=== PATIENT | female | born 1940 | race Caucasian/White ===

== ENCOUNTER 2022-10-18 00:43 | Inpatient (IN) | payer MEDICARE, OTHER ==
[~2022-10-18] VITALS: Ht 172.7 cm; Wt 64.0 kg
[2022-10-18 01:18] LABS: ADD URINE CULTURE YES; APPEARANCE,URINE SLIGHTLY CLOUDY (CLEAR); BACTERIA,URINE Rare /HPF (None Seen); BILIRUBIN,URINE NEGATIVE (NEGATIVE); BLOOD, URINE 3+ Ery/uL (NEGATIVE); COLOR,URINE DARK YELLOW (YELLOW); KETONES,URINE TRACE mg/dL (NEGATIVE); LEUKOCYTE ESTERASE ,URINE 2+ (NEGATIVE); NITRITE, URINE NEGATIVE (NEGATIVE); PH,URINE 5.5 (5.0-8.0); PROTEIN,URINE 2+ mg/dl (NEGATIVE); SQUAMOUS EPITHELIAL CELL,UR Few /HPF (None Seen); UGLUCOSE NEGATIVE (NEGATIVE)
[2022-10-18] MEDS ORDERED: AZITHROMYCIN 500 MG VIAL ONE (03:45)
[2022-10-18] MEDS ORDERED: CEFTRIAXONE 1GM BAG (ER ONLY) 50 ML IV ONE (03:45)
[2022-10-18 04:09] LABS: BASOPHILS # (AUTO) 0.1 K/uL (0.0-0.2); BASOPHILS % (AUTO) 0.6 % (0.0-2.0); EOSINOPHILS # (AUTO) 0.6 K/uL (0.0-0.7); EOSINOPHILS % (AUTO) 4.8 % (0.0-6.0); HEMATOCRIT 35 % (33-45); HEMOGLOBIN 11.1 g/dL (11.5-14.8); LYMPHOCYTES # (AUTO) 3.9 K/uL (0.8-4.8); MEAN CORPUSCULAR HEMOGLOBIN 27 PG (26.0-33.0); MEAN CORPUSCULAR HGB CONC 31 g/dl (31.0-36.0); MEAN CORPUSCULAR VOLUME 88 fL (82-100); NEUTROPHILS # (AUTO) 6.9 K/uL (1.8-8.9); NEUTROPHILS % (AUTO) 55.6 % (43.0-81.0); PLATELET COUNT (AUTO) 263 K/uL (150-450); RED BLOOD CELL COUNT(AUTO) 4.05 MIL/uL (4.0-5.2); RED CELL DISTRIBUTION WIDTH 19.6 % (11.5-15.0); WHITE BLOOD COUNT (AUTO) 12.5 K/uL (4.3-11.0)
[2022-10-18 04:10] LABS: ALANINE AMINOTRANSFERASE 59 U/L (12-78); ALBUMIN 2.1 g/dL (3.4-5.0); ALKALINE PHOSPHATASE 112 U/L (46-116); ASPARTATE AMINOTRANSFERASE 63 U/L (15-37); BILIRUBIN,DIRECT 0.1 mg/dL (0.0-0.2); BILIRUBIN,TOTAL 0.5 mg/dL (0.2-1.0); CALCIUM, SERUM 9.3 mg/dL (8.5-10.1); CARBON DIOXIDE 26 mmol/L (21-32); CHLORIDE 109 mmol/L (98-107); CREATININE 0.6 mg/dL (0.6-1.3); GLUCOSE 92 mg/dL (74-106); NT-PRO BNP 7640 pg/mL (0-125); POTASSIUM 3.6 mmol/L (3.5-5.1); SODIUM SERUM 145 mmol/L (136-145); TOTAL PROTEIN, SERUM 7.2 g/dL (6.4-8.2); UREA NITROGEN, BLOOD 29 mg/dL (7-18)
[2022-10-18 04:50] LABS: LACTIC ACID 1.6 mmol/L (0.4-2.0)
[2022-10-18 04:51] LABS: INR 1.11 (0.91-1.10); PARTIAL THROMBOPLASTIN TIME 29.9 SEC (24.3-34.3); PROTHROMBIN TIME 11.6 SECS (9.2-11.1)
[2022-10-18] MEDS ORDERED: CEFTRIAXONE 1GM BAG (ER ONLY) 1 GM/50 ML PIGGYBACK IV ONE (05:00)
[2022-10-18] MEDS ORDERED: AZITHROMYCIN 500 MG in IV D5W 250 ML IV ONE (05:00)
[2022-10-18] MEDS ORDERED: IV NS 0.9% 1,000 ML IV ONE (05:00)
[2022-10-18] MEDS ORDERED: MAG HYDROX/AL HYDROX/SIMETH 30 ML UDC PO PRN (05:30)
[2022-10-18] MEDS ORDERED: Z GUARD REMEDY 4 OZ OINT TP PRN (05:30)
[2022-10-18] MEDS ORDERED: ZOLPIDEM TARTRATE 5 MG TABLET PO PRN (05:30)
[2022-10-18] MEDS ORDERED: ENOXAPARIN SODIUM 40 MG/0.4 ML DISP.SYRIN SQ SCH (05:30)
[2022-10-18] MEDS ORDERED: ONDANSETRON HCL/PF 4 MG/2 ML VIAL IVP PRN (05:30)
[2022-10-18] MEDS ORDERED: ACETAMINOPHEN 325 MG TABLET PO PRN (05:30)
[2022-10-18] MEDS ORDERED: MAGNESIUM HYDROXIDE 30 ML UDC PO PRN (05:30)
[2022-10-18] MEDS ORDERED: PANTOPRAZOLE 40 MG TABLET.DR PO SCH (07:30)
[2022-10-18 08:05] VITALS: BP 110/64; TEMP 98.1; O2SAT 96
[2022-10-18] MEDS: IV NS 0.9% 1,000 ML IV PRN (08:33)
[2022-10-18] MEDS ORDERED: MAGN400T26 GT (09:23)
[2022-10-18] MEDS ORDERED: MULT9LIQ6 GT (09:23)
[2022-10-18] MEDS ORDERED: DAPT500V2 IV (09:23)
[2022-10-18] MEDS ORDERED: ASCO-352 GT (09:23)
[2022-10-18] MEDS ORDERED: OMEP20CA15 GT (09:23)
[2022-10-18] MEDS ORDERED: SODI473S8 TOP (09:23)
[2022-10-18] MEDS ORDERED: MERO1VIA23 IV (09:23)
[2022-10-18] MEDS ORDERED: GABA-532 GT (09:23)
[2022-10-18] MEDS ORDERED: FURO20TA4 GT (09:23)
[2022-10-18] MEDS ORDERED: SCOP1PAT11 TD (09:23)
[2022-10-18] MEDS ORDERED: SENN-261 GT (09:23)
[2022-10-18] MEDS ORDERED: LACT100027 GT (09:23)
[2022-10-18] MEDS ORDERED: AMIN30LI2 GT (09:23)
[2022-10-18] MEDS ORDERED: METO25TA20 GT (09:23)
[2022-10-18] MEDS ORDERED: BISA10SU11 RC (09:23)
[2022-10-18] MEDS ORDERED: OXCA300T15 GT (09:23)
[2022-10-18] MEDS ORDERED: ATOR40TA GT (09:23)
[2022-10-18] MEDS ORDERED: CALCIUM ALGINATE TD (09:23)
[2022-10-18] MEDS ORDERED: ARGI1POW13 GT (09:23)
[2022-10-18] MEDS ORDERED: QUET25TA GT (09:23)
[2022-10-18] MEDS ORDERED: MENT71OI2 TP (09:23)
[2022-10-18] MEDS ORDERED: THIA100T74 GT (09:23)
[2022-10-18] MEDS ORDERED: MELA5TAB GT (09:23)
[2022-10-18] MEDS ORDERED: POLY17PO4 GT (09:23)
[2022-10-18] MEDS ORDERED: DILT30TA14 GT (09:23)
[2022-10-18] MEDS ORDERED: FOLI0.4T6 GT (09:23)
[2022-10-18] MEDS ORDERED: APIX2.5T GT (09:23)
[2022-10-18] MEDS: ENOXAPARIN SODIUM 40 MG/0.4 ML DISP.SYRIN SQ SCH (09:40)
[2022-10-18] MEDS ORDERED: AMIODARONE 450 MG in IV D5W 241 ML IV PRN (11:00)
[2022-10-18] MEDS ORDERED: AMIODARONE 150 MG in IV D5W 100 ML IV ONE (11:00)
[2022-10-18] MEDS ORDERED: ZOLPIDEM TARTRATE 5 MG TABLET GT PRN (11:17)
[2022-10-18] MEDS ORDERED: MAG HYDROX/AL HYDROX/SIMETH 30 ML UDC GT PRN (11:17)
[2022-10-18] MEDS ORDERED: MAGNESIUM HYDROXIDE 30 ML UDC GT PRN (11:17)
[2022-10-18] MEDS ORDERED: ACETAMINOPHEN 650 MG/20.3 ML UDC GT PRN (11:30)
[2022-10-18 12:00] VITALS: BP 134/93; TEMP 98.2; O2SAT 97
[2022-10-18] MEDS: JEVITY 1.2 CAL 1,000 ML BOTTLE GT PRN (12:18)
[2022-10-18] MEDS ORDERED: GUAIFENESIN/D-METHORPHAN HB 5 ML UDC PO PRN (14:30)
[2022-10-18] MEDS ORDERED: [UNRECOGNIZED DRUG - OTHER] GT (15:30)
[2022-10-18] MEDS ORDERED: [UNRECOGNIZED DRUG - OTHER] GT (15:30)
[2022-10-18] MEDS ORDERED: COLLAGEN GT (15:30)
[2022-10-18] MEDS ORDERED: [UNRECOGNIZED DRUG - OTHER] GT (15:30)
[2022-10-18 16:00] VITALS: BP 132/89; TEMP 98.2; O2SAT 95
[2022-10-18] MEDS ORDERED: DILTIAZEM HCL IV 125 MG in IV NS 0.9% 100 ML IV PRN ×4 (19:30)
[2022-10-18 20:00] VITALS: BP 118/67; TEMP 97.9; O2SAT 97
[2022-10-18] MEDS: DILTIAZEM HCL IV 125 MG in IV NS 0.9% 100 ML IV PRN (20:10)
[2022-10-19] VITALS: BP 113/71; TEMP 98.2; O2SAT 99
[2022-10-19] MEDS: QUETIAPINE FUMARATE 25 MG TABLET GT SCH ×2 (00:36→21:58)
[2022-10-19] MEDS: IV NS 0.9% 1,000 ML IV PRN ×2 (00:40→14:42)
[2022-10-19 04:00] VITALS: BP 108/72; TEMP 97.7; O2SAT 99
[2022-10-19] MEDS: CEFTRIAXONE 1 G in IV D5W 50 ML IV SCH (04:35)
[2022-10-19] MEDS: AZITHROMYCIN 500 MG in IV D5W 250 ML IV SCH (05:32)
[2022-10-19 07:37] LABS: BASOPHILS % (AUTO) 0.3 % (0.0-2.0); EOSINOPHILS # (AUTO) 0.5 K/uL (0.0-0.7); HEMATOCRIT 34 % (33-45); HEMOGLOBIN 10.9 g/dL (11.5-14.8); LYMPHOCYTES # (AUTO) 1.9 K/uL (0.8-4.8); LYMPHOCYTES % (AUTO) 21.8 % (20.0-44.0); MEAN CORPUSCULAR HEMOGLOBIN 28 PG (26.0-33.0); MEAN CORPUSCULAR HGB CONC 32 g/dl (31.0-36.0); MEAN CORPUSCULAR VOLUME 88 fL (82-100); MONOCYTES # (AUTO) 0.6 K/uL (0.1-1.30); NEUTROPHILS # (AUTO) 5.8 K/uL (1.8-8.9); NEUTROPHILS % (AUTO) 64.9 % (43.0-81.0); PLATELET COUNT (AUTO) 252 K/uL (150-450); RED BLOOD CELL COUNT(AUTO) 3.89 MIL/uL (4.0-5.2); RED CELL DISTRIBUTION WIDTH 19.6 % (11.5-15.0); WHITE BLOOD COUNT (AUTO) 8.9 K/uL (4.3-11.0)
[2022-10-19 08:00] VITALS: BP 128/68; TEMP 97.6; O2SAT 99
[2022-10-19 08:05] LABS: CALCIUM, SERUM 8.6 mg/dL (8.5-10.1); CARBON DIOXIDE 24 mmol/L (21-32); CHLORIDE 112 mmol/L (98-107); CREATININE 0.5 mg/dL (0.6-1.3); GLUCOSE 150 mg/dL (74-106); MAGNESIUM 2.1 mg/dL (1.8-2.4); PHOSPHORUS 2.6 mg/dL (2.5-4.9); POTASSIUM 3.2 mmol/L (3.5-5.1); SODIUM SERUM 145 mmol/L (136-145); UREA NITROGEN, BLOOD 21 mg/dL (7-18)
[2022-10-19 08:19] LABS: THYROID STIMULATING HORMONE 3.498 uIU/mL (0.358-3.74)
[2022-10-19] MEDS: PANTOPRAZOLE 40 MG/PACK PACK GT SCH (09:24)
[2022-10-19] MEDS: CLOTRIMAZOLE 1% 15 GM TUBE TP SCH ×2 (09:25→17:21)
[2022-10-19] MEDS: ENOXAPARIN SODIUM 40 MG/0.4 ML DISP.SYRIN SQ SCH (09:25)
[2022-10-19] MEDS: PROSOURCE / PROSTAT (PYXIS) 30 ML UDC GT SCH (09:26)
[2022-10-19] MEDS: DAKINS QUARTER STRENGTH (0.125%) 480 ML BOTTLE TOP SCH ×2 (09:26→15:21)
[2022-10-19] MEDS: POTASSIUM CHLORIDE 20 MEQ POWDER PACKET NG SCH ×2 (09:47→11:53)
[2022-10-19 12:00] VITALS: BP 134/79; TEMP 98; O2SAT 99
[2022-10-19] MEDS: THERAHONEY GEL 1.5 OZ TUBE TP SCH (15:22)
[2022-10-19 16:00] VITALS: BP 141/84; TEMP 98.1; O2SAT 99
[2022-10-19] MEDS: DILTIAZEM HCL IV 125 MG in IV NS 0.9% 100 ML IV PRN (17:44)
[2022-10-19] MEDS ORDERED: DILTIAZEM HCL 30 MG TABLET GT SCH (18:30)
[2022-10-19] MEDS: APIXABAN 2.5 MG TABLET GT SCH (18:50)
[2022-10-19] MEDS: OXCARBAZEPINE 150 MG TABLET PO SCH (19:09)
[2022-10-19 20:00] VITALS: BP 120/95; TEMP 98.1; O2SAT 98
[2022-10-19] MEDS: DILTIAZEM HCL 30 MG TABLET GT SCH (21:57)
[2022-10-19] MEDS: SCOPOLAMINE PATCH 1 MG/72HR TD SCH (21:57)
[2022-10-19] MEDS: ATORVASTATIN 40 MG TABLET GT SCH (21:57)
[2022-10-19] MEDS ORDERED: QUETIAPINE FUMARATE 25 MG TABLET GT SCH (22:00)
[2022-10-20] VITALS: BP 103/59; TEMP 98.7; O2SAT 97
[2022-10-20 04:00] VITALS: BP 100/70; TEMP 97.8; O2SAT 96
[2022-10-20] MEDS: CEFTRIAXONE 1 G in IV D5W 50 ML IV SCH (04:56)
[2022-10-20] MEDS: AZITHROMYCIN 500 MG in IV D5W 250 ML IV SCH (04:57)
[2022-10-20 05:56] LABS: BASOPHILS % (AUTO) 0.6 % (0.0-2.0); EOSINOPHILS # (AUTO) 0.5 K/uL (0.0-0.7); EOSINOPHILS % (AUTO) 6.8 % (0.0-6.0); HEMATOCRIT 35 % (33-45); HEMOGLOBIN 10.8 g/dL (11.5-14.8); LYMPHOCYTES % (AUTO) 25.5 % (20.0-44.0); MEAN CORPUSCULAR HEMOGLOBIN 28 PG (26.0-33.0); MEAN CORPUSCULAR HGB CONC 31 g/dl (31.0-36.0); MEAN CORPUSCULAR VOLUME 89 fL (82-100); MONOCYTES # (AUTO) 0.6 K/uL (0.1-1.30); MONOCYTES % (AUTO) 7.2 % (2.0-12.0); NEUTROPHILS # (AUTO) 4.6 K/uL (1.8-8.9); NEUTROPHILS % (AUTO) 59.9 % (43.0-81.0); PLATELET COUNT (AUTO) 233 K/uL (150-450); RED CELL DISTRIBUTION WIDTH 19.5 % (11.5-15.0); WHITE BLOOD COUNT (AUTO) 7.7 K/uL (4.3-11.0)
[2022-10-20] MEDS: IV NS 0.9% 1,000 ML IV PRN (06:01)
[2022-10-20] MEDS: JEVITY 1.2 CAL 1,000 ML BOTTLE GT PRN (06:09)
[2022-10-20 06:16] LABS: ALANINE AMINOTRANSFERASE 58 U/L (12-78); ALBUMIN 1.8 g/dL (3.4-5.0); ALKALINE PHOSPHATASE 123 U/L (46-116); ASPARTATE AMINOTRANSFERASE 53 U/L (15-37); BILIRUBIN,TOTAL 0.2 mg/dL (0.2-1.0); CALCIUM, SERUM 8.7 mg/dL (8.5-10.1); CARBON DIOXIDE 23 mmol/L (21-32); CHLORIDE 113 mmol/L (98-107); CREATININE 0.5 mg/dL (0.6-1.3); GLUCOSE 114 mg/dL (74-106); PHOSPHORUS 2.9 mg/dL (2.5-4.9); POTASSIUM 3.7 mmol/L (3.5-5.1); SODIUM SERUM 145 mmol/L (136-145); TOTAL PROTEIN, SERUM 6.4 g/dL (6.4-8.2); UREA NITROGEN, BLOOD 13 mg/dL (7-18)
[2022-10-20 08:00] VITALS: BP 113/66; TEMP 98.6; O2SAT 97
[2022-10-20] MEDS: OXCARBAZEPINE 150 MG TABLET PO SCH ×3 (08:58→16:21)
[2022-10-20] MEDS: THIAMINE HCL 100 MG TABLET GT SCH (08:58)
[2022-10-20] MEDS: DILTIAZEM HCL 30 MG TABLET GT SCH ×4 (08:58→21:31)
[2022-10-20] MEDS: METOPROLOL TARTRATE 25 MG TABLET GT SCH ×2 (08:59→16:21)
[2022-10-20] MEDS: GABAPENTIN 100 MG CAPSULE GT SCH ×3 (09:00→16:22)
[2022-10-20] MEDS ORDERED: FUROSEMIDE 20 MG TABLET GT SCH (09:00)
[2022-10-20] MEDS ORDERED: FUROSEMIDE 20 MG/2 ML VIAL IV SCH (09:00)
[2022-10-20] MEDS ORDERED: METOPROLOL TARTRATE 25 MG TABLET GT SCH (09:00)
[2022-10-20] MEDS: APIXABAN 2.5 MG TABLET GT SCH ×2 (09:02→16:22)
[2022-10-20] MEDS: PROSOURCE / PROSTAT (PYXIS) 30 ML UDC GT SCH (09:02)
[2022-10-20] MEDS: PANTOPRAZOLE 40 MG/PACK PACK GT SCH (09:07)
[2022-10-20] MEDS: POLYETHYLENE GLYCOL 3350 17 GM POWD.PACK GT SCH (09:08)
[2022-10-20] MEDS: SENNOSIDES 8.6 MG TABLET GT SCH ×2 (09:08→16:21)
[2022-10-20] MEDS: DAKINS QUARTER STRENGTH (0.125%) 480 ML BOTTLE TOP SCH ×3 (09:09→09:11)
[2022-10-20] MEDS: CLOTRIMAZOLE 1% 15 GM TUBE TP SCH ×2 (09:12→16:23)
[2022-10-20] MEDS: THERAHONEY GEL 1.5 OZ TUBE TP SCH (09:12)
[2022-10-20 12:00] VITALS: BP 120/68; TEMP 98.6; O2SAT 97
[2022-10-20 16:00] VITALS: BP 133/80; TEMP 98.1; O2SAT 97
[2022-10-20] MEDS ORDERED: Sodium Phosphate 30 MMOL in IV NS 0.9% 250 ML IV SCH (16:30)
[2022-10-20] MEDS: IV NS 0.9% 250 ML IV PRN (16:39)
[2022-10-20] MEDS: [UNRECOGNIZED DRUG - OTHER] GT SCH (17:50)
[2022-10-20 20:00] VITALS: BP 115/63; TEMP 97.7; O2SAT 98
[2022-10-20] MEDS: QUETIAPINE FUMARATE 25 MG TABLET GT SCH (21:31)
[2022-10-20] MEDS: ATORVASTATIN 40 MG TABLET GT SCH (21:31)
[2022-10-21] VITALS: BP 91/50; TEMP 97.9; O2SAT 95
[2022-10-21] MEDS: JEVITY 1.2 CAL 1,000 ML BOTTLE GT PRN ×2 (00:55→15:32)
[2022-10-21 04:00] VITALS: BP 111/59; TEMP 98; O2SAT 98
[2022-10-21] MEDS: CEFTRIAXONE 1 G in IV D5W 50 ML IV SCH (04:56)
[2022-10-21] MEDS: AZITHROMYCIN 500 MG in IV D5W 250 ML IV SCH (05:52)
[2022-10-21 08:00] VITALS: BP 97/60; TEMP 98.7; O2SAT 100
[2022-10-21 08:01] LABS: ALANINE AMINOTRANSFERASE 47 U/L (12-78); ALBUMIN 1.7 g/dL (3.4-5.0); ALKALINE PHOSPHATASE 115 U/L (46-116); ASPARTATE AMINOTRANSFERASE 39 U/L (15-37); BILIRUBIN,TOTAL 0.2 mg/dL (0.2-1.0); CALCIUM, SERUM 8.6 mg/dL (8.5-10.1); CARBON DIOXIDE 28 mmol/L (21-32); CHLORIDE 110 mmol/L (98-107); CREATININE 0.5 mg/dL (0.6-1.3); GLUCOSE 136 mg/dL (74-106); MAGNESIUM 1.7 mg/dL (1.8-2.4); PHOSPHORUS 3.1 mg/dL (2.5-4.9); POTASSIUM 3.5 mmol/L (3.5-5.1); SODIUM SERUM 144 mmol/L (136-145); TOTAL PROTEIN, SERUM 5.9 g/dL (6.4-8.2); UREA NITROGEN, BLOOD 16 mg/dL (7-18)
[2022-10-21 08:07] LABS: BASOPHILS % (AUTO) 0.4 % (0.0-2.0); EOSINOPHILS # (AUTO) 0.5 K/uL (0.0-0.7); EOSINOPHILS % (AUTO) 6.4 % (0.0-6.0); HEMATOCRIT 32 % (33-45); LYMPHOCYTES # (AUTO) 2.1 K/uL (0.8-4.8); LYMPHOCYTES % (AUTO) 26.9 % (20.0-44.0); MEAN CORPUSCULAR HEMOGLOBIN 28 PG (26.0-33.0); MEAN CORPUSCULAR HGB CONC 31 g/dl (31.0-36.0); MEAN CORPUSCULAR VOLUME 88 fL (82-100); MONOCYTES # (AUTO) 0.6 K/uL (0.1-1.30); MONOCYTES % (AUTO) 7.2 % (2.0-12.0); NEUTROPHILS # (AUTO) 4.6 K/uL (1.8-8.9); NEUTROPHILS % (AUTO) 59.1 % (43.0-81.0); PLATELET COUNT (AUTO) 246 K/uL (150-450); RED BLOOD CELL COUNT(AUTO) 3.66 MIL/uL (4.0-5.2); RED CELL DISTRIBUTION WIDTH 19.9 % (11.5-15.0); WHITE BLOOD COUNT (AUTO) 7.8 K/uL (4.3-11.0)
[2022-10-21] MEDS: PROSOURCE / PROSTAT (PYXIS) 30 ML UDC GT SCH (08:55)
[2022-10-21] MEDS: PANTOPRAZOLE 40 MG/PACK PACK GT SCH (08:55)
[2022-10-21] MEDS: DILTIAZEM HCL 30 MG TABLET GT SCH ×4 (08:55→21:13)
[2022-10-21] MEDS: METOPROLOL TARTRATE 25 MG TABLET GT SCH ×2 (08:56→16:30)
[2022-10-21] MEDS: POLYETHYLENE GLYCOL 3350 17 GM POWD.PACK GT SCH (08:56)
[2022-10-21] MEDS: [UNRECOGNIZED DRUG - OTHER] GT SCH (08:56)
[2022-10-21] MEDS: SENNOSIDES 8.6 MG TABLET GT SCH ×2 (08:57→16:05)
[2022-10-21] MEDS: THIAMINE HCL 100 MG TABLET GT SCH (08:57)
[2022-10-21] MEDS: GABAPENTIN 100 MG CAPSULE GT SCH ×3 (08:57→16:29)
[2022-10-21] MEDS: OXCARBAZEPINE 150 MG TABLET PO SCH ×3 (08:57→16:05)
[2022-10-21] MEDS: APIXABAN 2.5 MG TABLET GT SCH ×2 (08:59→16:31)
[2022-10-21] MEDS: DAKINS QUARTER STRENGTH (0.125%) 480 ML BOTTLE TOP SCH ×3 (09:00→09:37)
[2022-10-21] MEDS: CLOTRIMAZOLE 1% 15 GM TUBE TP SCH ×2 (09:00→16:05)
[2022-10-21] MEDS: THERAHONEY GEL 1.5 OZ TUBE TP SCH (09:37)
[2022-10-21 12:00] VITALS: BP 129/72; TEMP 98.6; O2SAT 99
[2022-10-21] MEDS ORDERED: MAGNESIUM OXIDE 400 MG TABLET GT ONE (12:00)
[2022-10-21 16:00] VITALS: BP 114/65; TEMP 98.6; O2SAT 99
[2022-10-21 20:00] VITALS: BP 120/69; TEMP 98.7; O2SAT 99
[2022-10-21] MEDS: QUETIAPINE FUMARATE 25 MG TABLET GT SCH (21:10)
[2022-10-21] MEDS: ATORVASTATIN 40 MG TABLET GT SCH (21:13)
[2022-10-22] VITALS: BP 105/53; TEMP 98.3; O2SAT 99
[2022-10-22 04:00] VITALS: BP 121/75; TEMP 98.6; O2SAT 97
[2022-10-22] MEDS: CEFTRIAXONE 1 G in IV D5W 50 ML IV SCH (04:39)
[2022-10-22] MEDS: AZITHROMYCIN 500 MG in IV D5W 250 ML IV SCH (05:32)
[2022-10-22 07:39] LABS: BASOPHILS % (AUTO) 0.4 % (0.0-2.0); EOSINOPHILS # (AUTO) 0.5 K/uL (0.0-0.7); HEMATOCRIT 36 % (33-45); HEMOGLOBIN 11.1 g/dL (11.5-14.8); LYMPHOCYTES # (AUTO) 2.2 K/uL (0.8-4.8); LYMPHOCYTES % (AUTO) 24.1 % (20.0-44.0); MEAN CORPUSCULAR HEMOGLOBIN 27 PG (26.0-33.0); MEAN CORPUSCULAR HGB CONC 31 g/dl (31.0-36.0); MEAN CORPUSCULAR VOLUME 87 fL (82-100); MONOCYTES # (AUTO) 0.7 K/uL (0.1-1.30); MONOCYTES % (AUTO) 7.4 % (2.0-12.0); NEUTROPHILS # (AUTO) 5.6 K/uL (1.8-8.9); NEUTROPHILS % (AUTO) 62.1 % (43.0-81.0); PLATELET COUNT (AUTO) 267 K/uL (150-450); RED BLOOD CELL COUNT(AUTO) 4.08 MIL/uL (4.0-5.2); RED CELL DISTRIBUTION WIDTH 19.3 % (11.5-15.0)
[2022-10-22 07:51] LABS: ALANINE AMINOTRANSFERASE 55 U/L (12-78); ALBUMIN 1.9 g/dL (3.4-5.0); ALKALINE PHOSPHATASE 116 U/L (46-116); ASPARTATE AMINOTRANSFERASE 48 U/L (15-37); BILIRUBIN,TOTAL 0.2 mg/dL (0.2-1.0); CALCIUM, SERUM 8.8 mg/dL (8.5-10.1); CARBON DIOXIDE 28 mmol/L (21-32); CHLORIDE 107 mmol/L (98-107); CREATININE 0.5 mg/dL (0.6-1.3); GLUCOSE 122 mg/dL (74-106); MAGNESIUM 1.8 mg/dL (1.8-2.4); PHOSPHORUS 3.2 mg/dL (2.5-4.9); POTASSIUM 4.1 mmol/L (3.5-5.1); SODIUM SERUM 141 mmol/L (136-145); TOTAL PROTEIN, SERUM 6.7 g/dL (6.4-8.2); UREA NITROGEN, BLOOD 15 mg/dL (7-18)
[2022-10-22 08:00] VITALS: BP 114/65; TEMP 98.4
[2022-10-22] MEDS: PANTOPRAZOLE 40 MG/PACK PACK GT SCH (08:05)
[2022-10-22] MEDS: [UNRECOGNIZED DRUG - OTHER] GT SCH (09:39)
[2022-10-22] MEDS: PROSOURCE / PROSTAT (PYXIS) 30 ML UDC GT SCH (09:39)
[2022-10-22] MEDS: GABAPENTIN 100 MG CAPSULE GT SCH ×3 (09:40→17:28)
[2022-10-22] MEDS: DILTIAZEM HCL 30 MG TABLET GT SCH ×4 (09:40→21:58)
[2022-10-22] MEDS: POLYETHYLENE GLYCOL 3350 17 GM POWD.PACK GT SCH (09:40)
[2022-10-22] MEDS: OXCARBAZEPINE 150 MG TABLET PO SCH ×3 (09:41→17:28)
[2022-10-22] MEDS: SENNOSIDES 8.6 MG TABLET GT SCH ×2 (09:41→17:26)
[2022-10-22] MEDS: THIAMINE HCL 100 MG TABLET GT SCH (09:41)
[2022-10-22] MEDS: METOPROLOL TARTRATE 25 MG TABLET GT SCH (09:42)
[2022-10-22] MEDS: DAKINS QUARTER STRENGTH (0.125%) 480 ML BOTTLE TOP SCH ×3 (09:43→09:45)
[2022-10-22] MEDS: THERAHONEY GEL 1.5 OZ TUBE TP SCH (09:44)
[2022-10-22] MEDS: APIXABAN 2.5 MG TABLET GT SCH ×2 (09:46→17:27)
[2022-10-22] MEDS: JEVITY 1.2 CAL 1,000 ML BOTTLE GT PRN (09:47)
[2022-10-22] MEDS: CLOTRIMAZOLE 1% 15 GM TUBE TP SCH ×2 (09:47→17:30)
[2022-10-22 12:00] VITALS: BP 111/64; TEMP 98.2; O2SAT 98
[2022-10-22 16:00] VITALS: BP 103/60; TEMP 98; O2SAT 98
[2022-10-22] MEDS: METOPROLOL TARTRATE 50 MG TABLET GT SCH (17:28)
[2022-10-22 20:00] VITALS: BP 124/68; TEMP 97.9; O2SAT 97
[2022-10-22] MEDS: ATORVASTATIN 40 MG TABLET GT SCH (21:58)
[2022-10-22] MEDS: QUETIAPINE FUMARATE 25 MG TABLET GT SCH (21:59)
[2022-10-22] MEDS: SCOPOLAMINE PATCH 1 MG/72HR TD SCH (21:59)
[2022-10-23] VITALS: BP 109/69; TEMP 98.2; O2SAT 93
[2022-10-23 04:00] VITALS: BP 115/67; TEMP 98; O2SAT 97
[2022-10-23] MEDS: JEVITY 1.2 CAL 1,000 ML BOTTLE GT PRN ×2 (04:16→22:07)
[2022-10-23] MEDS: CEFTRIAXONE 1 G in IV D5W 50 ML IV SCH (05:17)
[2022-10-23 08:00] VITALS: BP 169/67; TEMP 97.7; O2SAT 97
[2022-10-23] MEDS: POLYETHYLENE GLYCOL 3350 17 GM POWD.PACK GT SCH (08:42)
[2022-10-23] MEDS: [UNRECOGNIZED DRUG - OTHER] GT SCH (08:42)
[2022-10-23] MEDS: GABAPENTIN 100 MG CAPSULE GT SCH ×3 (08:43→16:29)
[2022-10-23] MEDS: DILTIAZEM HCL 30 MG TABLET GT SCH ×4 (08:43→21:25)
[2022-10-23] MEDS: OXCARBAZEPINE 150 MG TABLET PO SCH ×3 (08:43→16:29)
[2022-10-23] MEDS: METOPROLOL TARTRATE 50 MG TABLET GT SCH ×2 (08:43→16:30)
[2022-10-23] MEDS: SENNOSIDES 8.6 MG TABLET GT SCH ×2 (08:44→16:29)
[2022-10-23] MEDS: APIXABAN 2.5 MG TABLET GT SCH ×2 (08:44→16:30)
[2022-10-23] MEDS: THIAMINE HCL 100 MG TABLET GT SCH (08:44)
[2022-10-23] MEDS: PROSOURCE / PROSTAT (PYXIS) 30 ML UDC GT SCH (08:46)
[2022-10-23] MEDS: PANTOPRAZOLE 40 MG/PACK PACK GT SCH (08:46)
[2022-10-23] MEDS: THERAHONEY GEL 1.5 OZ TUBE TP SCH (08:47)
[2022-10-23] MEDS: DAKINS QUARTER STRENGTH (0.125%) 480 ML BOTTLE TOP SCH ×3 (08:47→08:48)
[2022-10-23] MEDS: CLOTRIMAZOLE 1% 15 GM TUBE TP SCH ×2 (08:48→16:30)
[2022-10-23 12:00] VITALS: BP 125/75; TEMP 98.3; O2SAT 96
[2022-10-23] MEDS: FLUCONAZOLE IN NS 100 ML IV SCH (12:11)
[2022-10-23 16:00] VITALS: BP 122/58; TEMP 98.2; O2SAT 96
[2022-10-23] MEDS: QUETIAPINE FUMARATE 25 MG TABLET GT SCH (21:23)
[2022-10-23] MEDS: ATORVASTATIN 40 MG TABLET GT SCH (21:23)
[2022-10-24] VITALS: BP 132/66; TEMP 98; O2SAT 97
[2022-10-24] MEDS: CEFTRIAXONE 1 G in IV D5W 50 ML IV SCH (05:13)
[2022-10-24 06:00] VITALS: BP 130/68; TEMP 98; O2SAT 97
[2022-10-24 08:00] VITALS: BP 116/71; TEMP 98.4; O2SAT 97
[2022-10-24] MEDS: [UNRECOGNIZED DRUG - OTHER] GT SCH (08:14)
[2022-10-24] MEDS: METOPROLOL TARTRATE 50 MG TABLET GT SCH ×2 (08:15→16:15)
[2022-10-24] MEDS: DILTIAZEM HCL 30 MG TABLET GT SCH ×4 (08:15→21:12)
[2022-10-24] MEDS: GABAPENTIN 100 MG CAPSULE GT SCH ×3 (08:15→16:14)
[2022-10-24] MEDS: PANTOPRAZOLE 40 MG/PACK PACK GT SCH (08:15)
[2022-10-24] MEDS: THIAMINE HCL 100 MG TABLET GT SCH (08:15)
[2022-10-24] MEDS: SENNOSIDES 8.6 MG TABLET GT SCH ×2 (08:15→16:14)
[2022-10-24] MEDS: POLYETHYLENE GLYCOL 3350 17 GM POWD.PACK GT SCH (08:16)
[2022-10-24] MEDS: DAKINS QUARTER STRENGTH (0.125%) 480 ML BOTTLE TOP SCH ×3 (08:16)
[2022-10-24] MEDS: OXCARBAZEPINE 150 MG TABLET PO SCH ×3 (08:16→16:14)
[2022-10-24] MEDS: CLOTRIMAZOLE 1% 15 GM TUBE TP SCH ×2 (08:17→16:16)
[2022-10-24] MEDS: THERAHONEY GEL 1.5 OZ TUBE TP SCH (08:17)
[2022-10-24] MEDS: APIXABAN 2.5 MG TABLET GT SCH ×2 (08:17→16:17)
[2022-10-24] MEDS: PROSOURCE / PROSTAT (PYXIS) 30 ML UDC GT SCH (08:18)
[2022-10-24] MEDS: FLUCONAZOLE IN NS 100 ML IV SCH (11:20)
[2022-10-24 12:00] VITALS: BP 118/69; TEMP 97.4; O2SAT 99
[2022-10-24 16:00] VITALS: BP 107/68; TEMP 98.1; O2SAT 97
[2022-10-24 20:00] VITALS: BP 110/68; TEMP 98; O2SAT 98
[2022-10-24] MEDS: QUETIAPINE FUMARATE 25 MG TABLET GT SCH (21:10)
[2022-10-24] MEDS: ATORVASTATIN 40 MG TABLET GT SCH (21:12)
[2022-10-25] VITALS: BP 97/62; TEMP 97.8; O2SAT 94
[2022-10-25 04:00] VITALS: BP 139/95; TEMP 98.3; O2SAT 94
[2022-10-25] MEDS: CEFTRIAXONE 1 G in IV D5W 50 ML IV SCH (04:35)
[2022-10-25 08:00] VITALS: BP 148/75; TEMP 99.9; O2SAT 98
[2022-10-25] MEDS: OXCARBAZEPINE 150 MG TABLET PO SCH ×3 (08:13→16:17)
[2022-10-25] MEDS: POLYETHYLENE GLYCOL 3350 17 GM POWD.PACK GT SCH (08:13)
[2022-10-25] MEDS: PANTOPRAZOLE 40 MG/PACK PACK GT SCH (08:13)
[2022-10-25] MEDS: [UNRECOGNIZED DRUG - OTHER] GT SCH (08:13)
[2022-10-25] MEDS: PROSOURCE / PROSTAT (PYXIS) 30 ML UDC GT SCH (08:13)
[2022-10-25] MEDS: METOPROLOL TARTRATE 50 MG TABLET GT SCH ×2 (08:14→16:16)
[2022-10-25] MEDS: SENNOSIDES 8.6 MG TABLET GT SCH ×2 (08:14→16:16)
[2022-10-25] MEDS: DAKINS QUARTER STRENGTH (0.125%) 480 ML BOTTLE TOP SCH ×3 (08:15→09:27)
[2022-10-25] MEDS: DILTIAZEM HCL 30 MG TABLET GT SCH ×4 (08:15→21:22)
[2022-10-25] MEDS: THERAHONEY GEL 1.5 OZ TUBE TP SCH (08:21)
[2022-10-25] MEDS: GABAPENTIN 100 MG CAPSULE GT SCH ×3 (08:30→16:17)
[2022-10-25] MEDS: THIAMINE HCL 100 MG TABLET GT SCH (08:30)
[2022-10-25] MEDS: APIXABAN 2.5 MG TABLET GT SCH ×2 (08:32→16:17)
[2022-10-25] MEDS: CLOTRIMAZOLE 1% 15 GM TUBE TP SCH ×2 (08:33→16:23)
[2022-10-25] MEDS: FLUCONAZOLE IN NS 100 ML IV SCH (11:04)
[2022-10-25 12:00] VITALS: BP 141/82; TEMP 99; O2SAT 98
[2022-10-25] MEDS: JEVITY 1.2 CAL 1,000 ML BOTTLE GT PRN (15:15)
[2022-10-25 16:01] VITALS: BP 154/75; TEMP 97.6; O2SAT 98
[2022-10-25 20:00] VITALS: BP 119/95; TEMP 98.8; O2SAT 98
[2022-10-25] MEDS: SCOPOLAMINE PATCH 1 MG/72HR TD SCH (21:22)
[2022-10-25] MEDS: ATORVASTATIN 40 MG TABLET GT SCH (21:22)
[2022-10-25] MEDS: QUETIAPINE FUMARATE 25 MG TABLET GT SCH (21:22)
[2022-10-26] VITALS: BP 102/68; TEMP 99.1; O2SAT 99
[2022-10-26 04:00] VITALS: BP 115/66; TEMP 99.1; O2SAT 100
[2022-10-26] MEDS: CEFTRIAXONE 1 G in IV D5W 50 ML IV SCH (04:35)
[2022-10-26] MEDS: JEVITY 1.2 CAL 1,000 ML BOTTLE GT PRN ×2 (05:17→23:44)
[2022-10-26] MEDS: PROSOURCE / PROSTAT (PYXIS) 30 ML UDC GT SCH (07:52)
[2022-10-26] MEDS: PANTOPRAZOLE 40 MG/PACK PACK GT SCH (07:52)
[2022-10-26 08:00] VITALS: BP 104/86; TEMP 98; O2SAT 96
[2022-10-26] MEDS: CLOTRIMAZOLE 1% 15 GM TUBE TP SCH ×2 (08:17→17:11)
[2022-10-26] MEDS: THERAHONEY GEL 1.5 OZ TUBE TP SCH (08:17)
[2022-10-26] MEDS: DAKINS QUARTER STRENGTH (0.125%) 480 ML BOTTLE TOP SCH (08:17)
[2022-10-26] MEDS: POLYETHYLENE GLYCOL 3350 17 GM POWD.PACK GT SCH (08:22)
[2022-10-26] MEDS: OXCARBAZEPINE 150 MG TABLET PO SCH ×3 (08:22→17:17)
[2022-10-26] MEDS: THIAMINE HCL 100 MG TABLET GT SCH (08:23)
[2022-10-26] MEDS: FLUCONAZOLE (100 MG) 100 MG TABLET PO SCH (08:24)
[2022-10-26] MEDS: METOPROLOL TARTRATE 50 MG TABLET GT SCH ×2 (08:25→17:18)
[2022-10-26] MEDS: SULFAMETH/TRIMETH 800/160 MG 1 UDTAB TABLET PO SCH ×2 (08:26→21:01)
[2022-10-26] MEDS: DILTIAZEM HCL 30 MG TABLET GT SCH ×4 (08:26→21:01)
[2022-10-26] MEDS: SENNOSIDES 8.6 MG TABLET GT SCH ×2 (08:26→17:18)
[2022-10-26] MEDS: GABAPENTIN 100 MG CAPSULE GT SCH ×3 (08:26→17:18)
[2022-10-26] MEDS: [UNRECOGNIZED DRUG - OTHER] GT SCH (08:28)
[2022-10-26] MEDS: APIXABAN 2.5 MG TABLET GT SCH ×2 (08:35→17:19)
[2022-10-26 12:00] VITALS: BP 121/57; TEMP 98.2; O2SAT 99
[2022-10-26 16:00] VITALS: BP 106/73; TEMP 98.4; O2SAT 95
[2022-10-26 20:00] VITALS: BP 132/71; TEMP 97.9; O2SAT 96
[2022-10-26] MEDS: ATORVASTATIN 40 MG TABLET GT SCH (21:08)
[2022-10-26] MEDS: QUETIAPINE FUMARATE 25 MG TABLET GT SCH (21:09)
[2022-10-27] VITALS: BP 98/73; TEMP 98.2; O2SAT 97
[2022-10-27 04:00] VITALS: BP 138/72; TEMP 98.4; O2SAT 99
[2022-10-27 08:00] VITALS: BP 127/73; TEMP 98; O2SAT 99
[2022-10-27] MEDS: PANTOPRAZOLE 40 MG/PACK PACK GT SCH (08:14)
[2022-10-27] MEDS: APIXABAN 2.5 MG TABLET GT SCH ×2 (08:15→16:36)
[2022-10-27] MEDS: [UNRECOGNIZED DRUG - OTHER] GT SCH (08:16)
[2022-10-27] MEDS: POLYETHYLENE GLYCOL 3350 17 GM POWD.PACK GT SCH (08:16)
[2022-10-27] MEDS: METOPROLOL TARTRATE 50 MG TABLET GT SCH ×2 (08:17→16:31)
[2022-10-27] MEDS: DILTIAZEM HCL 30 MG TABLET GT SCH ×4 (08:17→22:23)
[2022-10-27] MEDS: THIAMINE HCL 100 MG TABLET GT SCH (08:18)
[2022-10-27] MEDS: SENNOSIDES 8.6 MG TABLET GT SCH ×2 (08:18→16:32)
[2022-10-27] MEDS: CLOTRIMAZOLE 1% 15 GM TUBE TP SCH ×2 (08:18→16:17)
[2022-10-27] MEDS: OXCARBAZEPINE 150 MG TABLET PO SCH ×3 (08:18→16:39)
[2022-10-27] MEDS: SULFAMETH/TRIMETH 800/160 MG 1 UDTAB TABLET PO SCH ×2 (08:18→22:23)
[2022-10-27] MEDS: FLUCONAZOLE (100 MG) 100 MG TABLET PO SCH (08:18)
[2022-10-27] MEDS: GABAPENTIN 100 MG CAPSULE GT SCH ×3 (08:18→16:31)
[2022-10-27] MEDS: THERAHONEY GEL 1.5 OZ TUBE TP SCH (08:18)
[2022-10-27] MEDS: DAKINS QUARTER STRENGTH (0.125%) 480 ML BOTTLE TOP SCH (08:19)
[2022-10-27] MEDS: PROSOURCE / PROSTAT (PYXIS) 30 ML UDC GT SCH (08:20)
[2022-10-27] MEDS ORDERED: METO50TA16 GT (10:42)
[2022-10-27] MEDS ORDERED: DILT30TA14 GT (10:42)
[2022-10-27] MEDS ORDERED: FLUC100T8 PO (10:43)
[2022-10-27 12:00] VITALS: BP 107/68; TEMP 97.9; O2SAT 98
[2022-10-27] MEDS: JEVITY 1.2 CAL 1,000 ML BOTTLE GT PRN (14:34)
[2022-10-27 16:00] VITALS: BP 108/58; TEMP 98.2; O2SAT 96
[2022-10-27 20:00] VITALS: BP 113/56; TEMP 97.6; O2SAT 97
[2022-10-27] MEDS: ATORVASTATIN 40 MG TABLET GT SCH (22:24)
[2022-10-27] MEDS: QUETIAPINE FUMARATE 25 MG TABLET GT SCH (22:24)
[2022-10-28] VITALS: BP 113/69; TEMP 98.7; O2SAT 97
[2022-10-28 04:00] VITALS: BP 110/71; TEMP 97.5; O2SAT 98
[2022-10-28] MEDS: JEVITY 1.2 CAL 1,000 ML BOTTLE GT PRN (05:46)
[2022-10-28] MEDS: PANTOPRAZOLE 40 MG/PACK PACK GT SCH (07:42)
[2022-10-28] MEDS: PROSOURCE / PROSTAT (PYXIS) 30 ML UDC GT SCH (07:43)
[2022-10-28 08:00] VITALS: BP 138/59; TEMP 98; O2SAT 98
[2022-10-28] MEDS: CLOTRIMAZOLE 1% 15 GM TUBE TP SCH ×2 (08:18→17:11)
[2022-10-28] MEDS: THERAHONEY GEL 1.5 OZ TUBE TP SCH (08:18)
[2022-10-28] MEDS: DAKINS QUARTER STRENGTH (0.125%) 480 ML BOTTLE TOP SCH (08:18)
[2022-10-28] MEDS: [UNRECOGNIZED DRUG - OTHER] GT SCH (08:44)
[2022-10-28] MEDS: POLYETHYLENE GLYCOL 3350 17 GM POWD.PACK GT SCH (08:44)
[2022-10-28] MEDS: THIAMINE HCL 100 MG TABLET GT SCH (08:45)
[2022-10-28] MEDS: SENNOSIDES 8.6 MG TABLET GT SCH ×2 (08:45→17:34)
[2022-10-28] MEDS: SULFAMETH/TRIMETH 800/160 MG 1 UDTAB TABLET PO SCH ×2 (08:49→22:04)
[2022-10-28] MEDS: DILTIAZEM HCL 30 MG TABLET GT SCH ×4 (08:49→22:06)
[2022-10-28] MEDS: FLUCONAZOLE (100 MG) 100 MG TABLET PO SCH (08:49)
[2022-10-28] MEDS: GABAPENTIN 100 MG CAPSULE GT SCH ×3 (08:50→17:34)
[2022-10-28] MEDS: METOPROLOL TARTRATE 50 MG TABLET GT SCH ×2 (08:50→17:33)
[2022-10-28] MEDS: OXCARBAZEPINE 150 MG TABLET PO SCH ×3 (08:50→17:33)
[2022-10-28] MEDS: APIXABAN 2.5 MG TABLET GT SCH ×2 (08:51→17:36)
[2022-10-28 12:00] VITALS: BP 88/63; TEMP 97.9; O2SAT 98
[2022-10-28 16:00] VITALS: BP 108/55; TEMP 98.2; O2SAT 97
[2022-10-28 20:00] VITALS: BP 110/61; TEMP 99.2; O2SAT 99
[2022-10-28] MEDS: ATORVASTATIN 40 MG TABLET GT SCH (22:04)
[2022-10-28] MEDS: QUETIAPINE FUMARATE 25 MG TABLET GT SCH (22:04)
[2022-10-28] MEDS: SCOPOLAMINE PATCH 1 MG/72HR TD SCH (22:05)
[2022-10-29] VITALS: BP 102/69; TEMP 98.4; O2SAT 94
[2022-10-29 04:00] VITALS: BP 106/75; TEMP 98.2; O2SAT 97
[2022-10-29 08:00] VITALS: BP 114/78; TEMP 97.7; O2SAT 97
[2022-10-29] MEDS: APIXABAN 2.5 MG TABLET GT SCH ×2 (08:42→17:43)
[2022-10-29] MEDS: SULFAMETH/TRIMETH 800/160 MG 1 UDTAB TABLET PO SCH ×2 (08:43→22:08)
[2022-10-29] MEDS: FLUCONAZOLE (100 MG) 100 MG TABLET PO SCH (08:43)
[2022-10-29] MEDS: PANTOPRAZOLE 40 MG/PACK PACK GT SCH (08:43)
[2022-10-29] MEDS: POLYETHYLENE GLYCOL 3350 17 GM POWD.PACK GT SCH (08:43)
[2022-10-29] MEDS: OXCARBAZEPINE 150 MG TABLET PO SCH ×3 (08:44→17:41)
[2022-10-29] MEDS: THIAMINE HCL 100 MG TABLET GT SCH (08:45)
[2022-10-29] MEDS: GABAPENTIN 100 MG CAPSULE GT SCH ×3 (08:45→17:41)
[2022-10-29] MEDS: SENNOSIDES 8.6 MG TABLET GT SCH ×2 (08:45→17:41)
[2022-10-29] MEDS: METOPROLOL TARTRATE 50 MG TABLET GT SCH ×2 (08:45→17:41)
[2022-10-29] MEDS: DILTIAZEM HCL 30 MG TABLET GT SCH ×4 (08:48→22:08)
[2022-10-29] MEDS: PROSOURCE / PROSTAT (PYXIS) 30 ML UDC GT SCH (08:58)
[2022-10-29] MEDS: DAKINS QUARTER STRENGTH (0.125%) 480 ML BOTTLE TOP SCH (08:59)
[2022-10-29] MEDS: CLOTRIMAZOLE 1% 15 GM TUBE TP SCH ×2 (09:01→17:43)
[2022-10-29] MEDS: THERAHONEY GEL 1.5 OZ TUBE TP SCH (09:01)
[2022-10-29] MEDS: [UNRECOGNIZED DRUG - OTHER] GT SCH (09:02)
[2022-10-29 12:00] VITALS: BP 100/85; TEMP 97.9; O2SAT 96
[2022-10-29] MEDS: JEVITY 1.2 CAL 1,000 ML BOTTLE GT PRN (14:30)
[2022-10-29 16:00] VITALS: BP 102/60; TEMP 97.9; O2SAT 100
[2022-10-29 20:00] VITALS: BP 112/64; TEMP 97.9; O2SAT 96
[2022-10-29] MEDS: ATORVASTATIN 40 MG TABLET GT SCH (22:08)
[2022-10-29] MEDS: QUETIAPINE FUMARATE 25 MG TABLET GT SCH (22:09)
[2022-10-30] VITALS: BP 95/51; TEMP 97.6; O2SAT 96
[2022-10-30] MEDS: IV NS 0.9% 250 ML IV PRN (03:23)
[2022-10-30 04:00] VITALS: BP 114/70; TEMP 97.9; O2SAT 96
[2022-10-30 08:00] VITALS: BP 101/60; TEMP 97.9; O2SAT 95
[2022-10-30] MEDS: GABAPENTIN 100 MG CAPSULE GT SCH ×3 (08:24→16:16)
[2022-10-30] MEDS: THIAMINE HCL 100 MG TABLET GT SCH (08:25)
[2022-10-30] MEDS: SULFAMETH/TRIMETH 800/160 MG 1 UDTAB TABLET PO SCH ×2 (08:25→21:08)
[2022-10-30] MEDS: PANTOPRAZOLE 40 MG/PACK PACK GT SCH (08:25)
[2022-10-30] MEDS: POLYETHYLENE GLYCOL 3350 17 GM POWD.PACK GT SCH (08:26)
[2022-10-30] MEDS: SENNOSIDES 8.6 MG TABLET GT SCH ×2 (08:26→16:15)
[2022-10-30] MEDS: OXCARBAZEPINE 150 MG TABLET PO SCH ×3 (08:26→16:16)
[2022-10-30] MEDS: FLUCONAZOLE (100 MG) 100 MG TABLET PO SCH (08:26)
[2022-10-30] MEDS: DILTIAZEM HCL 30 MG TABLET GT SCH ×4 (08:29→21:10)
[2022-10-30] MEDS: METOPROLOL TARTRATE 50 MG TABLET GT SCH ×2 (08:30→16:16)
[2022-10-30] MEDS: APIXABAN 2.5 MG TABLET GT SCH ×2 (08:31→16:18)
[2022-10-30] MEDS: PROSOURCE / PROSTAT (PYXIS) 30 ML UDC GT SCH (08:33)
[2022-10-30] MEDS: [UNRECOGNIZED DRUG - OTHER] GT SCH (08:34)
[2022-10-30] MEDS: CLOTRIMAZOLE 1% 15 GM TUBE TP SCH ×2 (09:21→17:00)
[2022-10-30] MEDS: DAKINS QUARTER STRENGTH (0.125%) 480 ML BOTTLE TOP SCH (09:21)
[2022-10-30] MEDS: THERAHONEY GEL 1.5 OZ TUBE TP SCH (09:23)
[2022-10-30 12:00] VITALS: BP 92/53; TEMP 98.2; O2SAT 95
[2022-10-30] MEDS: CLOTRIMAZOLE/BETAMETASONE DIPROPIONATE 15 GM TUBE TP SCH ×2 (12:00→16:56)
[2022-10-30 16:00] VITALS: BP 101/51; TEMP 98.2; O2SAT 96
[2022-10-30] MEDS: JEVITY 1.2 CAL 1,000 ML BOTTLE GT PRN (17:54)
[2022-10-30 20:00] VITALS: BP 96/74; TEMP 97.5; O2SAT 98
[2022-10-30] MEDS: QUETIAPINE FUMARATE 25 MG TABLET GT SCH (21:09)
[2022-10-30] MEDS: ATORVASTATIN 40 MG TABLET GT SCH (21:09)
[2022-10-31] VITALS (7 sets, daily range): BP systolic 94–127; BP diastolic 62–95; TEMP 97.5–98.4; O2SAT 98–100
[2022-10-31] MEDS: PANTOPRAZOLE 40 MG/PACK PACK GT SCH (08:09)
[2022-10-31] MEDS: PROSOURCE / PROSTAT (PYXIS) 30 ML UDC GT SCH (08:09)
[2022-10-31] MEDS: OXCARBAZEPINE 150 MG TABLET PO SCH ×3 (09:16→17:26)
[2022-10-31] MEDS: POLYETHYLENE GLYCOL 3350 17 GM POWD.PACK GT SCH (09:16)
[2022-10-31] MEDS: METOPROLOL TARTRATE 50 MG TABLET GT SCH ×2 (09:16→17:27)
[2022-10-31] MEDS: DILTIAZEM HCL 30 MG TABLET GT SCH ×4 (09:17→20:48)
[2022-10-31] MEDS: SENNOSIDES 8.6 MG TABLET GT SCH ×2 (09:17→17:27)
[2022-10-31] MEDS: THIAMINE HCL 100 MG TABLET GT SCH (09:17)
[2022-10-31] MEDS: FLUCONAZOLE (100 MG) 100 MG TABLET PO SCH (09:17)
[2022-10-31] MEDS: GABAPENTIN 100 MG CAPSULE GT SCH ×3 (09:17→17:27)
[2022-10-31] MEDS: SULFAMETH/TRIMETH 800/160 MG 1 UDTAB TABLET PO SCH ×2 (09:17→21:52)
[2022-10-31] MEDS: CLOTRIMAZOLE/BETAMETASONE DIPROPIONATE 15 GM TUBE TP SCH ×2 (09:20→17:28)
[2022-10-31] MEDS: CLOTRIMAZOLE 1% 15 GM TUBE TP SCH ×2 (09:20→17:28)
[2022-10-31] MEDS: DAKINS QUARTER STRENGTH (0.125%) 480 ML BOTTLE TOP SCH (09:20)
[2022-10-31] MEDS: [UNRECOGNIZED DRUG - OTHER] GT SCH (09:22)
[2022-10-31] MEDS: THERAHONEY GEL 1.5 OZ TUBE TP SCH (09:22)
[2022-10-31] MEDS: APIXABAN 2.5 MG TABLET GT SCH ×2 (09:24→17:41)
[2022-10-31] MEDS: JEVITY 1.2 CAL 1,000 ML BOTTLE GT PRN (17:26)
== END 2022-10-31 21:44 | DRG 981 ==
LOC: ER 01:05 → TELE1 07:04 → TELE-TD 10:57 → TELE1 10-20 13:21
PROVIDERS: ATTEND Internal Medicine
PROC: 0QB10ZZ Excision of Sacrum, Open Approach (ICD-10-PCS; principal; 2022-10-21)
PROC: 0KB50ZZ Excision of Right Shoulder Muscle, Open Approach (ICD-10-PCS; 2022-10-21)
PROC: 05HA33Z Insertion of Infusion Device into Left Brachial Vein, Percutaneous Approach (ICD-10-PCS; 2022-10-24)
PROC: 0QB10ZZ Excision of Sacrum, Open Approach (ICD-10-PCS; 2022-10-30)
DX: I48.91 Unspecified atrial fibrillation (principal); G93.41 Metabolic encephalopathy; L89.114 Pressure ulcer of right upper back, stage 4; L89.154 Pressure ulcer of sacral region, stage 4; R53.2 Functional quadriplegia; N39.0 Urinary tract infection, site not specified; D68.59 Other primary thrombophilia; I50.32 Chronic diastolic (congestive) heart failure; I11.0 Hypertensive heart disease with heart failure; Z20.822 Contact with and (suspected) exposure to COVID-19; G30.9 Alzheimer's disease, unspecified; F02.80 Dementia in other diseases classified elsewhere, unspecified severity, without behavioral disturbance, psychotic disturbance, mood disturbance, and anxiety; Z93.1 Gastrostomy status; R13.10 Dysphagia, unspecified; M24.571 Contracture, right ankle; M24.572 Contracture, left ankle; L89.619 Pressure ulcer of right heel, unspecified stage; L89.629 Pressure ulcer of left heel, unspecified stage; Z87.448 Personal history of other diseases of urinary system; Z79.01 Long term (current) use of anticoagulants; Z79.899 Other long term (current) drug therapy; B96.89 Other specified bacterial agents as the cause of diseases classified elsewhere; S71.001A Unspecified open wound, right hip, initial encounter; X58.XXXA Exposure to other specified factors, initial encounter; Y92.9 Unspecified place or not applicable
CPT/HCPCS: 36410; 36415; 71045-TC; 80048-TC; 80053-TC; 80076-TC; 81001; 82962-TC; 83605-TC; 83735-TC; 83880; 84100-TC; 84443-TC; 84484-TC; 85025-TC; 85730-TC; 87040-TC; 87081-TC; 87086-TC; 93307-TC; A4223; A6253; A6403; A6407; C9803; G0378; J0282; J0456; J0696; J1450; J1650; J1940; J3490; J7030; J7040; J7050; J7060